=== PATIENT | female | born 1985 | race African-American/Black ===

== ENCOUNTER 2018-12-20 16:05 | Inpatient (IN) | payer MEDICAID ==
[2018-12-20 17:13] LABS: ABS Basophils 0.1 10^3/ul (0-0.2); ABS Eosinophils 0.1 10^3/ul (0-0.6); ABS Lymphocytes 1.2 10^3/ul (1.0-4.8); ABS Monocytes 0.7 10^3/ul (0-0.8); ABS Neutrophils 4.4 10^3/ul (1.5-7.7); ABS Nucleated RBC 0 10^3/ul; Eosinophil % 1.8 %; Hematocrit 36 % (33-41); Hemoglobin 11.9 g/dL (12.0-16.0); Lymphocyte % 18.3 %; Mean Corpuscular HGB Conc 33 g/dL (31-36); Mean Corpuscular Hemoglobin 28 pg (27-31); Mean Corpuscular Volume 84 fL (80-97); Mean Platelet Volume 9.1 fL (7.4-10.4); Nucleated Red Blood Cells % 0.1; Platelet Count 235 10^3/uL (150-450); Red Cell Distribution Width 13 % (10.5-15); White Blood Count 6.5 10^3/uL (3.5-10.8)
[2018-12-20 17:25] LABS: Barbiturates Urine Screen None Detected (None Detect); Benzodiazepine Urine Screen None Detected (None Detect); Urine Appearance Cloudy; Urine Bacteria Absent (Absent); Urine Bilirubin Negative (Negative); Urine Blood 1+ (Negative); Urine Cannabinoids Screen None Detected (None Detect); Urine Color Yellow; Urine Glucose Negative (Negative); Urine Ketones Negative (Negative); Urine Nitrite Negative (Negative); Urine Protein Negative (Negative); Urine Red Blood Cell 1+(3-5/hpf) (Absent); Urine Specific Gravity 1.009 (1.010-1.030); Urine Squamous Epithelial Cell Present (Absent); Urine Urobilinogen Negative (Negative); Urine White Blood Cell Trace(0-5/hpf) (Absent)
[2018-12-20 17:31] LABS: ALT 9 U/L (7-52); AST 14 U/L (13-39); Albumin 4.2 g/dL (3.2-5.2); Albumin/Globulin Ratio 1.6 (1-3); Alkaline Phosphatase 50 U/L (34-104); Anion Gap 5 mmol/L (2-11); BUN/Creatinine Ratio 12.6 (8-20); Blood Urea Nitrogen 11 mg/dL (6-24); CO2 Carbon Dioxide 28 mmol/L (22-32); Calcium 9.1 mg/dL (8.6-10.3); Chloride 106 mmol/L (101-111); EGFR African American 91.9 (>60); EGFR Non-African American 75.9 (>60); Globulin 2.6 g/dL (2-4); Glucose 76 mg/dL (70-100); Potassium 4.1 mmol/L (3.5-5.0); Sodium 139 mmol/L (135-145); Total Protein 6.8 g/dL (6.4-8.9)
[2018-12-20 17:32] LABS: Alcohol < 10 mg/dL (<10); Salicylate < 2.50 mg/dL (<30)
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
[2018-12-20 17:36] LABS: HCG Pregnancy < 0.60 mIU/mL
[2018-12-20 17:44] LABS: TSH (Thyroid Stimulating Horm) 0.63 mcIU/mL (0.34-5.60)
[2018-12-20 17:48] LABS: Acetaminophen 4 mcg/mL
--- NOTE | 2018-12-20 19:11 | ED ---
Progress - Progress Note Progress Note: Receiving sign out from Dr. Matias, pending MHE. Pt's condition has been stable. She will be transferred to another psychiatric facility. Final dx as per Dr. Mcclendon are unspecified psychosis and ruled out schizophrenia. She will be signed out to Dr. Matias, pending transfer to another psychiatric facility. Course/Dx - Diagnoses Provider Diagnoses: Unspecified psychosis - Provider Notifications Discussed Care Of Patient With: Joshua Mcclendon Time Discussed With Above Provider: 20:30 Instructed by Provider To: Other - Dr. Mcclendon would like to have the pt admitted , however there are currently no beds available. Pt will most likely have to be transferred. Final dx of unspecified psychosis and ruled out schizophrenia. In the meantime she will be brought back to the ED annex. Discharge - Sign-Out/Discharge Documenting (check all that apply): Sign-Out Patient, Receiving Sign-Out Signing out patient TO: Santana Matias Receiving patient FROM: Santana Matias Patient Received Moderate/Deep Sedation with Procedure: No - Discharge Plan Referrals: No Primary Care Phys,NOPCP [Primary Care Provider] - - Attestation Statements Document Initiated by Scribe: Yes Documenting Scribe: Stefanie Moya Provider For Whom Scribe is Documenting (Include Credential): Doe Benjamin MD Scribe Attestation: Stefanie Ames, scribed for Doe Benjamin MD on 12/21/18 at 0050. Status of Scribe Document: Ready
[2018-12-20] MEDS ORDERED: LORazepam TAB(*) 1 MG PO ONE (20:17)
[2018-12-20] MEDS ORDERED: Mouth Piece, Nicotine* 1 EACH CARTRIDGE ONE (21:24)
[2018-12-20] MEDS: Nicotine Inhaler* 10 MG AMP INH PRN (21:31)
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
[2018-12-21] MEDS ORDERED: Al Hydrox/Mg Hydrox/Simet LIQ* 30 ML UDC PO PRN (15:37)
[2018-12-21] MEDS ORDERED: Acetaminophen TAB* 325 MG PO PRN (15:37)
[2018-12-21] MEDS ORDERED: Nicotine Inhaler* 10 MG AMP INH PRN (17:18)
[2018-12-21] MEDS ORDERED: Mouth Piece, Nicotine* 1 EACH CARTRIDGE INH SCH (17:18)
[2018-12-21] MEDS ORDERED: Nicotine GUM* 2 MG PO PRN (17:18)
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
[2018-12-22] MEDS: Vitamin THERAPEUTIC TAB PO SCH (21:47)
[2018-12-22] MEDS: Nicotine Inhaler* 10 MG AMP INH PRN (23:46)
[2018-12-23] MEDS: Vitamin THERAPEUTIC TAB PO SCH (08:59)
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
[2018-12-23] MEDS: Paliperidone ER TAB* 6 MG TAB.ER PO SCH (16:50)
[2018-12-24] MEDS: Paliperidone ER TAB* 6 MG TAB.ER PO SCH (08:45)
[2018-12-24] MEDS: Vitamin THERAPEUTIC TAB PO SCH (08:45)
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
[2018-12-25 08:40] LABS: HDL Cholesterol 53.8 mg/dL
[2018-12-25] MEDS: Vitamin THERAPEUTIC TAB PO SCH (09:40)
[2018-12-25] MEDS: Paliperidone ER TAB* 9 MG TAB.ER PO SCH (09:41)
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
[2018-12-25] MEDS: Nicotine Inhaler* 10 MG AMP INH PRN (17:41)
[2018-12-26] MEDS: Vitamin THERAPEUTIC TAB PO SCH (08:32)
[2018-12-26] MEDS: Paliperidone ER TAB* 9 MG TAB.ER PO SCH (08:32)
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
[2018-12-27] MEDS: Paliperidone ER TAB* 9 MG TAB.ER PO SCH (10:48)
[2018-12-27] MEDS: Vitamin THERAPEUTIC TAB PO SCH (10:48)
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
[2018-12-28] MEDS: Paliperidone ER TAB* 9 MG TAB.ER PO SCH (09:17)
[2018-12-28] MEDS: Vitamin THERAPEUTIC TAB PO SCH (09:17)
[2018-12-28] MEDS: Nicotine Inhaler* 10 MG AMP INH PRN (10:07)
[2018-12-28] MEDS ORDERED: LORazepam TAB(*) 1 MG PO ONE (18:40)
[2018-12-28] MEDS ORDERED: Haloperidol TAB* 5 MG PO ONE (18:40)
[2018-12-28] MEDS ORDERED: LORazepam TAB(*) 1 MG ONE (18:51)
[2018-12-28] MEDS ORDERED: Haloperidol TAB* 5 MG ONE (18:51)
[2018-12-28] MEDS ORDERED: LORazepam INJ* 2 MG/ML 1 ML VIAL ONE (19:04)
[2018-12-28] MEDS ORDERED: Haloperidol INJ IV/IM* 5 MG/ML AMP ONE (19:04)
[2018-12-29] MEDS: Paliperidone ER TAB* 9 MG TAB.ER PO SCH (08:29)
[2018-12-29] MEDS: Vitamin THERAPEUTIC TAB PO SCH (08:29)
[2018-12-30] MEDS: Paliperidone ER TAB* 9 MG TAB.ER PO SCH (08:23)
[2018-12-30] MEDS: Vitamin THERAPEUTIC TAB PO SCH (08:23)
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
[2018-12-31] MEDS: Paliperidone ER TAB* 6 MG TAB.ER PO SCH (09:20)
[2018-12-31] MEDS: Vitamin THERAPEUTIC TAB PO SCH (09:20)
[2019-01-01] MEDS: Paliperidone ER TAB* 6 MG TAB.ER PO SCH (08:23)
[2019-01-01] MEDS: Vitamin THERAPEUTIC TAB PO SCH (08:23)
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
[2019-01-02] MEDS: Paliperidone ER TAB* 6 MG TAB.ER PO SCH (08:32)
[2019-01-02] MEDS: Vitamin THERAPEUTIC TAB PO SCH (08:32)
[2019-01-02] MEDS: Nicotine Inhaler* 10 MG AMP INH PRN (17:53)
[2019-01-03 08:52] VITALS: BP 111/59
[2019-01-03] MEDS: Vitamin THERAPEUTIC TAB PO SCH (10:37)
[2019-01-03] MEDS: Paliperidone ER TAB* 6 MG TAB.ER PO SCH (10:37)
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
== END 2019-01-03 11:00 | disposition home or self-care (01) | DRG 750 ==
LOC: ED 16:05 → BSU 12-21 13:04
PROVIDERS: ADMIT Psychiatry & Neurology Psychiatry; ATTEND Psychiatry & Neurology Psychiatry
DX: F20.9 Schizophrenia, unspecified (principal); F17.200 Nicotine dependence, unspecified, uncomplicated; Z59.0 Homelessness
CPT/HCPCS: 36415; 80053; 80061; 80307; 80320; 80329; 81003; 81015; 83036; 84443; 84702; 85025; 87086; 93005; 99222; 99231; 99238; 99284; A9270-GY; G0480; J1630; J2060

== ENCOUNTER 2019-01-09 17:02 | Inpatient (IN) | payer MEDICAID ==
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
--- NOTE | 2019-01-09 19:29 | ED ---
Progress - Progress Note Progress Note: Receiving sign out from Dr. Miller at shift change, pending MHE. Pt was already medically cleared for a MHE. Her condition has been stable. She will be admitted to [facility] to Dr. Krishnan with a final dx of psychosis. Course/Dx - Course Course Of Treatment: Receiving sign out from Dr. Miller at shift change, pending MHE. Pt was already medically cleared for a MHE. Her condition has been stable. She will be admitted to [facility] psychiatric [facility] to Dr. Krishnan with a final dx of psychosis. Pt is agreeable with this plan, and the admission is voluntary. - Diagnoses Provider Diagnoses: Psychosis - Provider Notifications Discussed Care Of Patient With: Yfn Krishnan Time Discussed With Above Provider: 20:05 Instructed by Provider To: Admit As Inpatient - Pt is voluntarily admitted with a final dx of psychosis. Discharge - Sign-Out/Discharge Documenting (check all that apply): Patient Departure - Admit, Receiving Sign- Out Receiving patient FROM: Arthur Miller Patient Received Moderate/Deep Sedation with Procedure: No - Discharge Plan Condition: Stable Disposition: PSYCHIATRIC FACILITY-[facility] Referrals: No Primary Care Phys,NOPCP [Primary Care Provider] - - Attestation Statements Document Initiated by Scribe: Yes Documenting Scribe: Stefanie Moya Provider For Whom Scribe is Documenting (Include Credential): Lm Jc MD Scribe Attestation: Stefanie Ames, scribed for Lm Jc MD on 01/09/19 at 2021. Status of Scribe Document: Ready
[2019-01-09] MEDS ORDERED: Nicotine Inhaler* 10 MG AMP INH PRN (20:10)
[2019-01-09 20:26] LABS: ABS Basophils 0.1 10^3/ul (0-0.2); ABS Eosinophils 0.1 10^3/ul (0-0.6); ABS Lymphocytes 2.3 10^3/ul (1.0-4.8); ABS Monocytes 0.8 10^3/ul (0-0.8); ABS Neutrophils 5.2 10^3/ul (1.5-7.7); ABS Nucleated RBC 0 10^3/ul; Eosinophil % 1.5 %; Hematocrit 33 % (33-41); Hemoglobin 10.7 g/dL (12.0-16.0); Lymphocyte % 26.8 %; Mean Corpuscular HGB Conc 33 g/dL (31-36); Mean Corpuscular Hemoglobin 28 pg (27-31); Mean Corpuscular Volume 84 fL (80-97); Mean Platelet Volume 8.3 fL (7.4-10.4); Nucleated Red Blood Cells % 0.1; Platelet Count 233 10^3/uL (150-450); Red Blood Count 3.87 10^6 /uL (3.70-4.87); Red Cell Distribution Width 13 % (10.5-15); White Blood Count 8.5 10^3/uL (3.5-10.8)
[2019-01-09 20:43] LABS: ALT 9 U/L (7-52); AST 14 U/L (13-39); Albumin 3.9 g/dL (3.2-5.2); Albumin/Globulin Ratio 1.6 (1-3); Alkaline Phosphatase 44 U/L (34-104); Anion Gap 4 mmol/L (2-11); BUN/Creatinine Ratio 16.7 (8-20); Blood Urea Nitrogen 12 mg/dL (6-24); CO2 Carbon Dioxide 26 mmol/L (22-32); Calcium 8.8 mg/dL (8.6-10.3); Chloride 106 mmol/L (101-111); EGFR African American 114.3 (>60); EGFR Non-African American 94.5 (>60); Globulin 2.4 g/dL (2-4); Glucose 87 mg/dL (70-100); Potassium 3.8 mmol/L (3.5-5.0); Sodium 136 mmol/L (135-145); Total Protein 6.3 g/dL (6.4-8.9)
[2019-01-09 20:49] LABS: HCG Pregnancy < 0.60 mIU/mL
[2019-01-09 20:58] LABS: Acetaminophen < 15 mcg/mL; Alcohol < 10 mg/dL (<10); Salicylate < 2.50 mg/dL (<30)
[2019-01-09 21:12] LABS: Urine Appearance Clear; Urine Bacteria Absent (Absent); Urine Bilirubin Negative (Negative); Urine Blood 2+ (Negative); Urine Color Yellow; Urine Glucose Negative (Negative); Urine Ketones 1+ (Negative); Urine Nitrite Negative (Negative); Urine Protein Negative (Negative); Urine Red Blood Cell 1+(3-5/hpf) (Absent); Urine Specific Gravity 1.024 (1.010-1.030); Urine Squamous Epithelial Cell Present (Absent); Urine Urobilinogen Negative (Negative); Urine White Blood Cell Absent (Absent)
[2019-01-09 21:12] LABS: TSH (Thyroid Stimulating Horm) 1.29 mcIU/mL (0.34-5.60)
[2019-01-09] MEDS ORDERED: Mouth Piece, Nicotine* 1 EACH CARTRIDGE INH PRN (21:16)
[2019-01-09 21:22] LABS: Barbiturates Urine Screen None Detected (None Detect); Benzodiazepine Urine Screen None Detected (None Detect); Urine Cannabinoids Screen None Detected (None Detect)
[2019-01-10] MEDS ORDERED: Nicotine GUM* 2 MG PO PRN (00:33)
[2019-01-10] MEDS ORDERED: Acetaminophen TAB* 325 MG PO PRN (00:33)
[2019-01-10] MEDS ORDERED: Al Hydrox/Mg Hydrox/Simet LIQ* 30 ML UDC PO PRN (00:33)
[2019-01-10] MEDS ORDERED: Paliperidone ER TAB* 6 MG TAB.ER PO SCH (09:00)
[2019-01-10] MEDS: Multivitamins/Minerals TAB PO SCH (09:21)
[2019-01-10] MEDS ORDERED: Paliperidone SUSTENNA* 234 MG/1.5 ML IM ONE (13:00)
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
[2019-01-11 08:36] LABS: HDL Cholesterol 53.9 mg/dL
[2019-01-11] MEDS: Paliperidone ER TAB* 6 MG TAB.ER PO SCH (10:51)
[2019-01-11] MEDS: Multivitamins/Minerals TAB PO SCH (10:51)
[2019-01-12] MEDS: Paliperidone ER TAB* 6 MG TAB.ER PO SCH (09:02)
[2019-01-12] MEDS: Multivitamins/Minerals TAB PO SCH (09:02)
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
[2019-01-13] MEDS: Paliperidone ER TAB* 6 MG TAB.ER PO SCH (08:24)
[2019-01-13] MEDS: Multivitamins/Minerals TAB PO SCH (08:24)
[2019-01-13] MEDS ORDERED: Paliperidone SUSTENNA* 156 MG/1 ML IM ONE (09:00)
--- NOTE | 2019-01-13 14:21 | PN ---
Subjective - Subjective Date of Service: 01/13/19 Service Type: 40322 Hosp care 35 min high complexity Subjective: CC: "I will get the injection" Patient stated that her right arm is sore from getting a injection. She said that she doesnt want to go to court and that she will get the injection. She said that she continues to hear voices. She stated "because the plastic on the screwdriver is on the opposite end" Patient denied fever, muscle stiffness, shortness of breath. Objective - General Observations Appears Stated Age: Yes Stature: WNL Posture: WNL Eye Contact: Avoidant Behavior/Activity: Peculiar, Impulsive - Interaction Observations Attitude Towards Examiner: Mistrustful Stated Mood: Anxious Affect: Blunted, Flat Speech Pattern/Tone: Rambling Thought Process: Loose Associations Thought Content: Paranoid Thought Process: Lethality: Paranoid Ideation Delusion Type: Denies - Cognitive Function Orientation: A&O x 4 Level of Consciousness: Awake Insight: Mostly Blames Others for Problems Judgment Within Normal Limits: No Ability to Make Reasonable Decisions: Moderately Impaired - Medication Compliance Cooperative with Inpatient Medication Regimen: Partial - Group Participation Participates in Group Activities: No Plan - Plan Treatment Plan: Name: ОЛЬГА LOBATO Birthdate: 1985 [id number] Patient requires inpatient psychiatric hospitalization at this time. Will continue to monitor for safety every 15 minutes on the unit. Patient to receive invega injection today. Patient continues to be psychotic and disorganized, will monitor for response to treatment. Tentative discharge Sunday if favorable clinical response. Encourage participation in group therapy and psychoeducation. Continue current medications. Sodium 136 mmol/L (135-145) 01/09/19 20:20 Potassium 3.8 mmol/L (3.5-5.0) 01/09/19 20:20 BUN 12 mg/dL (6-24) 01/09/19 20:20 Creatinine 0.72 mg/dL (0.51-0.95) 01/09/19 20:20 Hemoglobin A1c 4.5 % (4.0-5.6) 01/11/19 07:53 Calcium 8.8 mg/dL (8.6-10.3) 01/09/19 20:20 AST 14 U/L (13-39) 01/09/19 20:20 ALT 9 U/L (7-52) 01/09/19 20:20 Triglycerides 41 mg/dL 01/11/19 07:53 Cholesterol 133 mg/dL 01/11/19 07:53 LDL Cholesterol 71 mg/dL 01/11/19 07:53 Vital Signs Temp Pulse Resp BP Pulse Ox 98.4 F 97 16 105/61 100 01/13/19 08:10 01/13/19 08:10 01/13/19 12:35 01/13/19 08:10 01/13/19 08:10 Continued Medication Management: Continue Outpt Medication Medications: Current Medications Acetaminophen (Tylenol Tab*) 650 mg PO Q4H PRN PRN Reason: PAIN; OR TEMP >01 Al Hydrox/Mg Hydrox/Simethicone (Maalox Plus*) 30 ml PO Q4H PRN PRN Reason: INDIGESTION Device (Nicotine Mouth Piece*) 1 each INH .USE W/ CARTRIDGE PRN PRN Reason: WITHDRAWAL - NICOTINE Multivitamins/Minerals (Theragran/Minerals Tab*) 1 tab PO DAILY [facility] Last Admin: 01/13/19 08:24 Dose: 1 tab Nicotine (Nicotine Inhaler*) 10 mg INH Q2H PRN PRN Reason: CRAVING Nicotine Polacrilex (Nicotine Gum*) 2 mg PO Q2H PRN PRN Reason: CRAVING Paliperidone (Invega Er Tab*) 6 mg PO DAILY [facility] Last Admin: 01/13/19 08:24 Dose: 6 mg - Discharge Plan Discharge Plan: Inpatient Hospitalization
[2019-01-13] MEDS ORDERED: Paliperidone ER TAB* 3 MG TAB.ER PO ONE (21:00)
[2019-01-14] MEDS: Multivitamins/Minerals TAB PO SCH (08:07)
[2019-01-14] MEDS ORDERED: Paliperidone ER TAB* 3 MG TAB.ER PO ONE (09:00)
--- NOTE | 2019-01-14 11:18 | PN ---
Subjective - Subjective Date of Service: 01/14/19 Service Type: 29563 Hosp care 35 min high complexity Subjective: Nursing Report: Patient was visible on unit, no chemical restraints or PRNs. Slept overnight without incident. CC: "I took the medication Patient was seen and evaluated by this provider. The patient reported she feels safe on the unit and mostly resides in her room. The patient reported that she plan to interview for a job at a [employer]. She reported having an adequate appetite and sleep. Per nursing no behavioral issues or overnight events reported. Patient reported that she is tolerating medications without side effects. She denied suicidal ideation, intent or plan. She denied homicidal ideation intent or plan. She denied auditory and or visual hallucinations. Objective - General Observations Appearance: Malodorous Appears Stated Age: Yes Stature: WNL Posture: WNL Eye Contact: Intermittent Behavior/Activity: WNL - Interaction Observations Attitude Towards Examiner: Cooperative Stated Mood: Euthymic Affect: Blunted Speech Pattern/Tone: Clear Thought Process: Coherent Perception: WNL Thought Content: WNL Hallucination Type: None Delusion Type: None - Cognitive Function Orientation: A&O x 4 Level of Consciousness: Awake Insight: Mostly Blames Others for Problems Ability to Make Reasonable Decisions: Mildly Impaired - Medication Compliance Cooperative with Inpatient Medication Regimen: Yes - Group Participation Participates in Group Activities: No Assessment - Assessment Merits Inpatient Hospitalization: For Stabilization Clinical Impression: 33 year old AAF with history of schizophrenia admitted to the [facility] for stabilization Plan - Plan Treatment Plan: Name: ОЛЬГА LOBATO Birthdate: 1985 [id number] Patient requires inpatient psychiatric hospitalization at this time. Will continue to monitor for safety every 15 minutes on the unit. Patient received invega injection today. Patient continues to be psychotic and disorganized, will monitor for response to treatment. Tentative discharge Sunday if favorable clinical response continues to be observed. Encourage participation in group therapy and psychoeducation. Continue current medications. Today the patient shows improvement of thought process and organization. Sodium 136 mmol/L (135-145) 01/09/19 20:20 Potassium 3.8 mmol/L (3.5-5.0) 01/09/19 20:20 BUN 12 mg/dL (6-24) 01/09/19 20:20 Creatinine 0.72 mg/dL (0.51-0.95) 01/09/19 20:20 Hemoglobin A1c 4.5 % (4.0-5.6) 01/11/19 07:53 Calcium 8.8 mg/dL (8.6-10.3) 01/09/19 20:20 AST 14 U/L (13-39) 01/09/19 20:20 ALT 9 U/L (7-52) 01/09/19 20:20 Triglycerides 41 mg/dL 01/11/19 07:53 Cholesterol 133 mg/dL 01/11/19 07:53 LDL Cholesterol 71 mg/dL 01/11/19 07:53 Vital Signs Temp Pulse Resp BP Pulse Ox 97.7 F 101 16 114/57 100 01/14/19 08:01 01/14/19 08:01 01/14/19 08:01 01/14/19 08:01 01/14/19 08:01 Continued Medication Management: Continue Outpt Medication Medications: Current Medications Acetaminophen (Tylenol Tab*) 650 mg PO Q4H PRN PRN Reason: PAIN; OR TEMP >01 Al Hydrox/Mg Hydrox/Simethicone (Maalox Plus*) 30 ml PO Q4H PRN PRN Reason: INDIGESTION Device (Nicotine Mouth Piece*) 1 each INH .USE W/ CARTRIDGE PRN PRN Reason: WITHDRAWAL - NICOTINE Multivitamins/Minerals (Theragran/Minerals Tab*) 1 tab PO DAILY [facility] Last Admin: 01/14/19 08:07 Dose: 1 tab Nicotine (Nicotine Inhaler*) 10 mg INH Q2H PRN PRN Reason: CRAVING Nicotine Polacrilex (Nicotine Gum*) 2 mg PO Q2H PRN PRN Reason: CRAVING - Discharge Plan Discharge Plan: Inpatient Hospitalization
[2019-01-15] MEDS: Multivitamins/Minerals TAB PO SCH (07:48)
[2019-01-15 08:23] VITALS: BP 103/56
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
== END 2019-01-15 11:15 | disposition home or self-care (01) | DRG 750 ==
LOC: ED 17:02 → BSU 01-10 01:29
PROVIDERS: ADMIT Psychiatry & Neurology Psychiatry; ATTEND Psychiatry & Neurology Psychiatry
DX: F20.9 Schizophrenia, unspecified (principal); F17.210 Nicotine dependence, cigarettes, uncomplicated
CPT/HCPCS: 36415; 80053; 80061; 80307; 80320; 80329; 81003; 81015; 83036; 84443; 84702; 85025; 99222; 99232; 99233; 99238; 99284; A9270-GY; G0480; J2426

== ENCOUNTER 2019-09-17 11:44 | Inpatient (IN) | payer MEDICAID, OTHER ==
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
[2019-09-17] MEDS ORDERED: Acetaminophen TAB* 325 MG PO PRN (14:14)
[2019-09-17] MEDS ORDERED: Al Hydrox/Mg Hydrox/Simet LIQ* 30 ML UDC PO PRN (14:14)
[2019-09-17] MEDS ORDERED: chlorproMAZINE TAB* 100 MG PO PRN ×2 (14:18→19:08)
[2019-09-17] MEDS ORDERED: Paliperidone ER TAB* 9 MG TAB.ER PO SCH (15:00)
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
[2019-09-17] MEDS: Paliperidone ER TAB* 6 MG TAB.ER PO SCH (22:15)
[2019-09-18] MEDS: Paliperidone ER TAB* 6 MG TAB.ER PO SCH ×2 (05:41→09:45)
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
[2019-09-19] MEDS ORDERED: LORazepam TAB(*) 1 MG PO PRN (10:52)
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
[2019-09-19] MEDS: Paliperidone ER TAB* 6 MG TAB.ER PO SCH (10:54)
[2019-09-20] MEDS: Paliperidone ER TAB* 6 MG TAB.ER PO SCH (13:42)
[2019-09-21] MEDS: Paliperidone ER TAB* 6 MG TAB.ER PO SCH (13:01)
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
[2019-09-22] MEDS: Paliperidone ER TAB* 6 MG TAB.ER PO SCH (08:47)
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
[2019-09-23] MEDS: Paliperidone ER TAB* 6 MG TAB.ER PO SCH (09:26)
[2019-09-24] MEDS: Paliperidone ER TAB* 6 MG TAB.ER PO SCH (10:10)
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
[2019-09-25] MEDS: Paliperidone ER TAB* 6 MG TAB.ER PO SCH (12:02)
[2019-09-26] MEDS: Paliperidone ER TAB* 6 MG TAB.ER PO SCH ×2 (09:03→13:18)
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
[2019-09-27] MEDS: Paliperidone ER TAB* 6 MG TAB.ER PO SCH (14:52)
[2019-09-28] MEDS: Paliperidone ER TAB* 6 MG TAB.ER PO SCH (10:47)
[2019-09-29] MEDS: Paliperidone ER TAB* 6 MG TAB.ER PO SCH (12:09)
[2019-09-29] MEDS ORDERED: Paliperidone SUSTENNA* 234 MG/1.5 ML IM ONE (13:13)
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
[2019-09-30] MEDS: Paliperidone ER TAB* 6 MG TAB.ER PO SCH (09:16)
[2019-10-01] MEDS ORDERED: Paliperidone ER TAB* 6 MG TAB.ER PO SCH (09:00)
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
[2019-10-02] MEDS ORDERED: Paliperidone SUSTENNA* 156 MG/1 ML IM ONE (09:00)
[2019-10-02 12:38] VITALS: BP 102/60
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
== END 2019-10-02 13:21 | disposition home or self-care (01) | DRG 750 ==
LOC: ED 11:44 → BSU 14:14 → ED 17:48 → BSU 10-01 08:38
PROVIDERS: ADMIT Psychiatry & Neurology Psychiatry; ATTEND Psychiatry & Neurology Psychiatry
DX: F20.9 Schizophrenia, unspecified (principal); Z87.891 Personal history of nicotine dependence; Z59.0 Homelessness; Z56.0 Unemployment, unspecified; Z91.14 Patient's other noncompliance with medication regimen
CPT/HCPCS: 99222; 99231; 99232; 99233; 99238; 99284; A9270-GY